=== PATIENT | female | born 1965 | race Native Hawaiian/Other Pacific Islander ===

== ENCOUNTER 2016-06-24 10:59 | Emergency (ER) | payer OTHER ==
[2016-06-24] MEDS ORDERED: NORCO 7.5/325 PO ONE (12:58)
--- NOTE | 2016-06-24 13:02 | Emergency Department Report ---
ED ENT HPI - General Chief complaint: Dental/Oral Stated complaint: TOOTHACHE Time Seen by Provider: 06/24/16 12:57 Source: patient Mode of arrival: Ambulatory Limitations: No Limitations - History of Present Illness Initial comments: 50 y/o female complain of toothache to left top tooth x 2 days . complaint: tooth pain Onset/Timin -: days(s) Location: tooth # (8) Severity: mild Severity scale (0 -10): 8 Quality: aching Consistency: constant Improves with: none Worsens with: none Context- Dental: history of dental caries Associated Symptoms: gum swelling - Related Data Previous Rx's Medication Instructions Recorded Last Taken Type HYDROcodone/ACETAMINOPHEN [[place] 1 each PO Q6HR PRN #20 tablet 03/30/14 Unknown Rx 5/325 Tablet] Ibuprofen [Motrin] 600 mg PO Q8H PRN #40 tablet 03/30/14 Unknown Rx Ibuprofen [Motrin] 800 mg PO Q8HR PRN #21 tablet 01/13/15 Unknown Rx Ibuprofen [Motrin] 800 mg PO Q8HR PRN #30 tablet 06/24/16 Unknown Rx Penicillin Vk [Veetids TAB] 250 mg PO QID #28 tablet 06/24/16 Unknown Rx Allergies Allergy/AdvReac Type Severity Reaction Status Date / Time No Known Allergies Allergy Verified 03/30/14 20:03 ED Dental HPI - General Chief complaint: Dental/Oral Stated complaint: TOOTHACHE Time Seen by Provider: 06/24/16 12:57 Source: patient Mode of arrival: Ambulatory Limitations: No Limitations - Related Data Previous Rx's Medication Instructions Recorded Last Taken Type HYDROcodone/ACETAMINOPHEN [[place] 1 each PO Q6HR PRN #20 tablet 03/30/14 Unknown Rx 5/325 Tablet] Ibuprofen [Motrin] 600 mg PO Q8H PRN #40 tablet 03/30/14 Unknown Rx Ibuprofen [Motrin] 800 mg PO Q8HR PRN #21 tablet 01/13/15 Unknown Rx Ibuprofen [Motrin] 800 mg PO Q8HR PRN #30 tablet 06/24/16 Unknown Rx Penicillin Vk [Veetids TAB] 250 mg PO QID #28 tablet 06/24/16 Unknown Rx Allergies Allergy/AdvReac Type Severity Reaction Status Date / Time No Known Allergies Allergy Verified 03/30/14 20:03 ED Review of Systems ROS: Stated complaint: TOOTHACHE Other details as noted in HPI Constitutional: denies: chills, fever Eyes: denies: eye pain, eye discharge, vision change ENT: dental pain. denies: ear pain, throat pain Respiratory: denies: cough, shortness of breath, wheezing Cardiovascular: denies: chest pain, palpitations Endocrine: no symptoms reported Gastrointestinal: denies: abdominal pain, nausea, diarrhea Genitourinary: denies: urgency, dysuria, discharge Musculoskeletal: denies: back pain, joint swelling, arthralgia Skin: denies: rash, lesions Neurological: denies: headache, weakness, paresthesias Psychiatric: denies: anxiety, depression Hematological/Lymphatic: denies: easy bleeding, easy bruising ED Past Medical Hx - Past Medical History Additional medical history: hypothyroid - Surgical History Past Surgical History?: No - Social History Smoking Status: Current Every Day Smoker Substance Use Type: None - Medications Home Medications: Home Medications Medication Instructions Recorded Confirmed Last Taken Type HYDROcodone/ACETAMINOPHEN [[place] 1 each PO Q6HR PRN #20 tablet 03/30/14 Unknown Rx 5/325 Tablet] Ibuprofen [Motrin] 600 mg PO Q8H PRN #40 tablet 03/30/14 Unknown Rx Ibuprofen [Motrin] 800 mg PO Q8HR PRN #21 tablet 01/13/15 Unknown Rx Ibuprofen [Motrin] 800 mg PO Q8HR PRN #30 tablet 06/24/16 Unknown Rx Penicillin Vk [Veetids TAB] 250 mg PO QID #28 tablet 06/24/16 Unknown Rx ED Physical Exam - General Limitations: No Limitations General appearance: alert, in no apparent distress - Head Head exam: Present: atraumatic, normocephalic - Eye Eye exam: Present: normal appearance, PERRL Pupils: Present: normal accommodation - ENT ENT exam: Present: mucous membranes moist - Expanded ENT Exam Expanded Ear exam: Present: normal external inspection Teeth exam: Present: dental caries, dental tenderness # - Neck Neck exam: Present: normal inspection - Respiratory Respiratory exam: Present: normal lung sounds bilaterally. Absent: respiratory distress, wheezes, rales - Cardiovascular Cardiovascular Exam: Present: regular rate, normal rhythm. Absent: systolic murmur, diastolic murmur, rubs, gallop - GI/Abdominal GI/Abdominal exam: Present: soft, normal bowel sounds - Extremities Exam Extremities exam: Present: normal inspection - Back Exam Back exam: Present: normal inspection - Neurological Exam Neurological exam: Present: alert, oriented X3 - Psychiatric Psychiatric exam: Present: normal affect, normal mood - Skin Skin exam: Present: warm, dry, intact, normal color. Absent: rash ED Course Vital Signs 06/24/16 11:06 Temperature 98.7 F Pulse Rate 86 Blood Pressure 122/84 O2 Sat by Pulse 100 Oximetry ED Medical Decision Making - Medical Decision Making mild tooth abscess over tooth number 8 Critical care attestation.: If time is entered above; I have spent that time in minutes in the direct care of this critically ill patient, excluding procedure time. ED Disposition Clinical Impression: Tooth abscess Disposition: DISCHARGED TO HOME OR SELFCARE Is pt being admited?: No Does the pt Need Aspirin: No Condition: Stable Instructions: Dental Abscess (ED) Additional Instructions: follow up with dentist Prescriptions: Ibuprofen [Motrin] 800 mg PO Q8HR PRN #30 tablet PRN Reason: Pain Penicillin Vk [Veetids TAB] 250 mg PO QID #28 tablet Referrals: NEFTALI DEUTSCH MD [Primary Care Provider] - 3-5 Days [facility] [Outside] - 3-5 Days Forms: Work/School Release Form(ED) Time of Disposition: 13:10
[2016-06-24 13:35] VITALS: BP 120/84
== END 2016-06-24 13:33 | disposition home or self-care (01) ==
LOC: ED 10:59
DX: K04.7 Periapical abscess without sinus (principal); E03.9 Hypothyroidism, unspecified; F17.200 Nicotine dependence, unspecified, uncomplicated
CPT/HCPCS: 99282

== ENCOUNTER 2016-07-02 15:13 | Outpatient (CLI) | payer OTHER | END 2016-07-02 15:14 | disposition home or self-care (01) | LOC: LABHHL 15:13 → LAB 15:13 | PROVIDERS: ATTEND Internal Medicine Gastroenterology | DX: D12.5 Benign neoplasm of sigmoid colon (principal) | CPT/HCPCS: 88305 ==

== ENCOUNTER 2017-02-05 11:58 | Emergency (ER) | payer OTHER ==
[2017-02-05 12:30] VITALS: BP 109/57
[2017-02-05 13:03] LABS: Urine Drugs of Abuse Note Disclamer
[2017-02-05 13:15] LABS: Bilirubin,Urine NEG (Negative); Blood,Urine NEG (Negative); Ketones,Urine NEG (Negative); Leukocyte Esterase,Urine NEG (Negative); Mucus,Urine FEW /HPF; Nitrite,Urine NEG (Negative); Protein,Urine <15 mg/dL mg/dL (Negative); Urobilinogen,Urine < 2.0 mg/dL (<2.0); WBC,Urine < 1.0 /HPF (0.0-6.0)
== END 2017-02-05 20:55 | disposition left against medical advice (07) ==
LOC: ED 11:58
DX: R45.851 Suicidal ideations (principal); Z53.21 Procedure and treatment not carried out due to patient leaving prior to being seen by health care provider
CPT/HCPCS: 80307; 81001

== ENCOUNTER 2017-04-04 07:38 | Outpatient (CLI) | payer OTHER ==
--- NOTE | 2017-04-04 08:32 | Ultrasound Report ---
ULTRASOUND EXTREMITY NONVASCULAR LEFT History: Mass on left thigh, leg mass. Findings: Targeted grayscale ultrasound with color Doppler interrogation was performed in the upper, posterior left leg. The images demonstrate nonspecific subcutaneous edema. There is no evidence for mass or fluid collection. There are a few small varicose veins identified in this area. The contralateral leg was also performed in this area for comparison. Impression: Nonspecific subcutaneous edema in the left posterior thigh. No discrete mass or fluid collection. A few varicose veins are identified in this area.
== END 2017-04-04 07:39 | disposition home or self-care (01) ==
LOC: US 07:38
PROVIDERS: ATTEND Surgery
DX: I83.92 Asymptomatic varicose veins of left lower extremity (principal); R22.9 Localized swelling, mass and lump, unspecified

== ENCOUNTER 2020-05-31 17:09 | Emergency (ER) | payer OTHER ==
--- NOTE | 2020-05-31 18:07 | Event Note ---
ED Screening Note ED Screening Note: procedure in april 2020 removal of possible lipoma?? now having left left pain and swelling calf pain her doctor sent to ED for concern for possible DVT also has an outpatient order for XR This initial assessment/diagnostic orders/clinical plan/treatment(s) is/are subject to change based on patients health status, clinical progression and re- assessment by fellow clinical providers in the ED. Further treatment and workup at subsequent clinical providers discretion. Patient/guardian urged not to elope from the ED as their condition may be serious if not clinically assessed and managed. Initial orders include: labs, US, XR
[2020-05-31 19:33] LABS: Alanine Aminotransferase 63 units/L (7-56); Albumin 4.2 g/dL (3.9-5); Basophils # (Auto) 0.1 K/mm3 (0.0-0.1); Basophils % (Auto) 0.5 % (0.0-1.8); Blood Urea Nitrogen 10 mg/dL (7-17); Calcium 9.3 mg/dL (8.4-10.2); Eosinophils # (Auto) 0.4 K/mm3 (0.0-0.4); Eosinophils % (Auto) 3.6 % (0.0-4.3); Hematocrit 40.6 % (30.3-42.9); Hemoglobin 13.4 gm/dl (10.1-14.3); Hemolysis Index 3; Lymphocytes % (Auto) 32.9 % (13.4-35.0); Mean Corpuscular HGB Conc 33 % (30-34); Mean Corpuscular Volume 95 fl (79-97); Monocytes # (Auto) 0.8 K/mm3 (0.0-0.8); Monocytes % (Auto) 6.6 % (0.0-7.3); Platelet Count 374 K/mm3 (140-440); Red Blood Count 4.26 M/mm3 (3.65-5.03); Red Cell Distribution Width 13.2 % (13.2-15.2)
[2020-05-31 19:35] LABS: BUN/Creatinine Ratio 25
[2020-05-31 19:47] LABS: INR 0.86 (0.87-1.13)
[2020-05-31 19:48] LABS: Partial Thromboplastin Time 28.5 Sec. (24.2-36.6)
--- NOTE | 2020-05-31 19:57 | XRay Report ---
LEFT HIP 2 VIEWS INDICATION / CLINICAL INFORMATION: recent procedure left lateral thigh COMPARISON: None available. FINDINGS: BONES / JOINT(S): No acute fracture or subluxation. No significant arthritis. SOFT TISSUES: No significant abnormality. ADDITIONAL FINDINGS: None. Signer Name: Lan Theodore MD Signed: 05/31/2020 7:53 PM Workstation Name: [id number]
[2020-05-31] MEDS ORDERED: APIXABAN 5 MG TAB PO ONE (20:27)
--- NOTE | 2020-05-31 20:34 | Emergency Department Report ---
ED Extremity Problem HPI - General Chief complaint: Extremity Problem,Nontraumatic Stated complaint: LT LEG PAIN/SWOLLEN Time Seen by Provider: 05/31/20 18:05 Source: patient Mode of arrival: Ambulatory Limitations: No Limitations - History of Present Illness Initial comments: Patient is a 54-year-old female who presents emergency room with complaints of left leg pain and swelling that began 05/26/2020. Patient states that on 04/15/2020 she had a procedure to the left leg to remove a lipoma. She states that she went back to work on 05/23/2020. She states that beginning last week she began to notice left leg pain, swelling, calf pain. She states that she feels like she has a lump in her calf. She denies any fall or injury. She denies any erythema, increased warmth, drainage, numbness, weakness, chest pain, shortness of breath. She denies any other past medical history. No allergies to medications. She denies any history of intercranial hemorrhage, CVA, GI bleed, cancer. - Related Data Previous Rx's Medication Instructions Recorded Last Taken Type HYDROcodone/ACETAMINOPHEN [[place] 1 each PO Q6HR PRN #20 tablet 03/30/14 Unknown Rx 5/325 Tablet] Ibuprofen [Motrin] 600 mg PO Q8H PRN #40 tablet 03/30/14 Unknown Rx Ibuprofen [Motrin] 800 mg PO Q8HR PRN #21 tablet 01/13/15 Unknown Rx Ibuprofen [Motrin] 800 mg PO Q8HR PRN #30 tablet 06/24/16 Unknown Rx Penicillin Vk [Veetids TAB] 250 mg PO QID #28 tablet 06/24/16 Unknown Rx Apixaban [Eliquis] 10 mg PO BID 2 Days #4 tablet 05/31/20 Unknown Rx methOCARBAMOL [Robaxin TAB] 500 mg PO BID PRN #14 tab 05/31/20 Unknown Rx traMADoL [Ultram 50 MG tab] 50 mg PO Q6HR PRN #10 tablet 05/31/20 Unknown Rx Allergies Allergy/AdvReac Type Severity Reaction Status Date / Time No Known Allergies Allergy Verified 04/22/18 13:33 ED Review of Systems ROS: Stated complaint: LT LEG PAIN/SWOLLEN Other details as noted in HPI Comment: All other systems reviewed and negative ED Past Medical Hx - Past Medical History Hx Psychiatric Treatment: Yes Additional medical history: hypothyroid - Social History Smoking Status: Current Some Day Smoker Substance Use Type: None - Medications Home Medications: Home Medications Medication Instructions Recorded Confirmed Last Taken Type HYDROcodone/ACETAMINOPHEN [[place] 1 each PO Q6HR PRN #20 tablet 03/30/14 Unknown Rx 5/325 Tablet] Ibuprofen [Motrin] 600 mg PO Q8H PRN #40 tablet 03/30/14 Unknown Rx Ibuprofen [Motrin] 800 mg PO Q8HR PRN #21 tablet 01/13/15 Unknown Rx Ibuprofen [Motrin] 800 mg PO Q8HR PRN #30 tablet 06/24/16 Unknown Rx Penicillin Vk [Veetids TAB] 250 mg PO QID #28 tablet 06/24/16 Unknown Rx Apixaban [Eliquis] 10 mg PO BID 2 Days #4 tablet 05/31/20 Unknown Rx methOCARBAMOL [Robaxin TAB] 500 mg PO BID PRN #14 tab 05/31/20 Unknown Rx traMADoL [Ultram 50 MG tab] 50 mg PO Q6HR PRN #10 tablet 05/31/20 Unknown Rx ED Physical Exam - General Limitations: No Limitations General appearance: alert, in no apparent distress - Head Head exam: Present: atraumatic, normocephalic - Eye Eye exam: Present: normal appearance - ENT ENT exam: Present: mucous membranes moist - Respiratory Respiratory exam: Present: normal lung sounds bilaterally. Absent: respiratory distress, wheezes, rales, rhonchi, stridor, chest wall tenderness, accessory muscle use, decreased breath sounds, prolonged expiratory - Cardiovascular Cardiovascular Exam: Present: regular rate, normal rhythm, normal heart sounds. Absent: systolic murmur, diastolic murmur, rubs, gallop - Neurological Exam Neurological exam: Present: alert, oriented X3 - Psychiatric Psychiatric exam: Present: normal affect, normal mood - Skin Skin exam: Present: warm, dry, other (there is a healed incision to the left posterior thigh, no erythema, no increased warmth, no fluctuance or induration, no drainage, there is mild non pitting edema to the LLE, calf ttp, no skin changes, neurovascularly intact) ED Course Vital Signs 05/31/20 17:28 Temperature 98.4 F Pulse Rate 90 Respiratory 20 Rate Blood Pressure 138/58 [Right] O2 Sat by Pulse 96 Oximetry ED Medical Decision Making - Lab Data Result diagrams: 05/31/20 19:00 05/31/20 19:00 Lab Results 05/31/20 05/31/20 05/31/20 Range/Units 19:00 19:00 19:00 WBC 12.0 H (4.5-11.0) K/mm3 RBC 4.26 (3.65-5.03) M/mm3 Hgb 13.4 (10.1-14.3) gm/dl Hct 40.6 (30.3-42.9) % MCV 95 (79-97) fl MCH 32 (28-32) pg MCHC 33 (30-34) % RDW 13.2 (13.2-15.2) % Plt Count 374 (140-440) K/mm3 Lymph % (Auto) 32.9 (13.4-35.0) % [place] % (Auto) 6.6 (0.0-7.3) % Eos % (Auto) 3.6 (0.0-4.3) % Baso % (Auto) 0.5 (0.0-1.8) % Lymph # (Auto) 4.0 (1.2-5.4) K/mm3 [place] # (Auto) 0.8 (0.0-0.8) K/mm3 Eos # (Auto) 0.4 (0.0-0.4) K/mm3 Baso # (Auto) 0.1 (0.0-0.1) K/mm3 Seg Neutrophils % 56.4 (40.0-70.0) % Seg Neutrophils # 6.8 (1.8-7.7) K/mm3 PT 11.6 L (12.2-14.9) Sec. INR 0.86 L (0.87-1.13) APTT 28.5 (24.2-36.6) Sec. Sodium 141 (137-145) mmol/L Potassium 4.1 (3.6-5.0) mmol/L Chloride 106.6 (98-107) mmol/L Carbon Dioxide 26 (22-30) mmol/L Anion Gap 13 mmol/L BUN 10 (7-17) mg/dL Creatinine 0.4 L (0.6-1.2) mg/dL Estimated GFR > 60 ml/min BUN/Creatinine Ratio 25 % Glucose 105 H (65-100) mg/dL Lactic Acid (0.7-2.0) mmol/L Calcium 9.3 (8.4-10.2) mg/dL Total Bilirubin 0.20 (0.1-1.2) mg/dL AST 46 H (5-40) units/L ALT 63 H (7-56) units/L Alkaline Phosphatase 132 H (35-129) units/L Total Protein 7.1 (6.3-8.2) g/dL Albumin 4.2 (3.9-5) g/dL Albumin/Globulin Ratio 1.4 % 05/31/20 Range/Units 19:00 WBC (4.5-11.0) K/mm3 RBC (3.65-5.03) M/mm3 Hgb (10.1-14.3) gm/dl Hct (30.3-42.9) % MCV (79-97) fl MCH (28-32) pg MCHC (30-34) % RDW (13.2-15.2) % Plt Count (140-440) K/mm3 Lymph % (Auto) (13.4-35.0) % [place] % (Auto) (0.0-7.3) % Eos % (Auto) (0.0-4.3) % Baso % (Auto) (0.0-1.8) % Lymph # (Auto) (1.2-5.4) K/mm3 [place] # (Auto) (0.0-0.8) K/mm3 Eos # (Auto) (0.0-0.4) K/mm3 Baso # (Auto) (0.0-0.1) K/mm3 Seg Neutrophils % (40.0-70.0) % Seg Neutrophils # (1.8-7.7) K/mm3 PT (12.2-14.9) Sec. INR (0.87-1.13) APTT (24.2-36.6) Sec. Sodium (137-145) mmol/L Potassium (3.6-5.0) mmol/L Chloride (98-107) mmol/L Carbon Dioxide (22-30) mmol/L Anion Gap mmol/L BUN (7-17) mg/dL Creatinine (0.6-1.2) mg/dL Estimated GFR ml/min BUN/Creatinine Ratio % Glucose (65-100) mg/dL Lactic Acid 1.20 (0.7-2.0) mmol/L Calcium (8.4-10.2) mg/dL Total Bilirubin (0.1-1.2) mg/dL AST (5-40) units/L ALT (7-56) units/L Alkaline Phosphatase (35-129) units/L Total Protein (6.3-8.2) g/dL Albumin (3.9-5) g/dL Albumin/Globulin Ratio % - Radiology Data Radiology results: report reviewed Ordering Physician: CELINA BERNAL Date of Service: 05/31/20 Procedure(s): XR hip 2-3V LT Accession Number(s): [id number] cc: CELINA BERNAL Fluoro Time In Minutes: LEFT HIP 2 VIEWS INDICATION / CLINICAL INFORMATION: recent procedure left lateral thigh COMPARISON: None available. FINDINGS: BONES / JOINT(S): No acute fracture or subluxation. No significant arthritis. SOFT TISSUES: No significant abnormality. ADDITIONAL FINDINGS: None. Signer Name: Lan Theodore MD Signed: 05/31/2020 7:53 PM Workstation Name: [id number] Transcribed By: ES Dictated By: Lan Theodore MD Electronically Authenticated By: Lan Theodore MD Signed Date/Time: 05/31/201952 DD/ 51 TD/TT: - Medical Decision Making Patient is a 54-year-old female who presents emergency room with complaints of left leg pain and swelling that began 05/26/2020. Patient states that on 04/15/2020 she had a procedure to the left leg to remove a lipoma. She states that she went back to work on 05/23/2020. She states that beginning last week she began to notice left leg pain, swelling, calf pain. She states that she feels like she has a lump in her calf. She denies any fall or injury. She denies any erythema, increased warmth, drainage, numbness, weakness, chest pain, shortness of breath. She denies any other past medical history. No allergies to medications. She denies any history of intercranial hemorrhage, CVA, GI ble ed, cancer. vss. on exam:there is a healed incision to the left posterior thigh, no erythema, no increased warmth, no fluctuance or induration, no drainage, there is mild non pitting edema to the LLE, calf ttp, no skin changes, neurovascularly intact. Labs are stable. X-ray left hip BONES / JOINT(S): No acute fracture or subluxation. No significant arthritis. SOFT TISSUES: No significant abnormality. ADDITIONAL FINDINGS: None. Due to unilateral leg swelling, there is concern for DVT. She has no tachycardia, no hypoxia, no chest pain, no shortness of breath, do not suspect PE at this time. Patient needs to have a ultrasound of the left lower extremity. There is no care administrative tech able to perform this study at night. Patient given p.o. Eliquis as she does not have any contraindications while in the emergency department and observed for 2 hours without any complications. Patient will be given a outpatient order form for ultrasound and advised to return tomorrow 06/01/2020 at 9 AM. Discussed very strict return precautions with patient. Discussed the importance of returning tomorrow to have the study performed. Patient given prescription for short course of Eliquis until she is able to have her ultrasound performed. Also given prescription for Robaxin and tramadol for pain. Discussed case with Dr. Weston, ER attending who agrees with plan. Advised pt Please take medication as prescribed. Do not drive or operate machinery while taking pain medication or muscle relaxer. Please return tomorrow 06/01/2020 at 9 AM to have a ultrasound performed of your leg. Please follow-up with a vascular doctor. Please follow-up with your primary care doctor. Return to emergency room immediately for any new or worsening symptoms or any signs of any bleeding. Critical care attestation.: If time is entered above; I have spent that time in minutes in the direct care of this critically ill patient, excluding procedure time. ED Disposition Clinical Impression: Pain and swelling of left lower leg Disposition: DC-01 TO HOME OR SELFCARE Is pt being admited?: No Does the pt Need Aspirin: No Condition: Stable Additional Instructions: Please take medication as prescribed. Do not drive or operate machinery while taking pain medication or muscle relaxer. Please return tomorrow 06/01/2020 at 9 AM to have a ultrasound performed of your leg. Please follow-up with a vascular doctor. Please follow-up with your primary care doctor. Return to emergency room immediately for any new or worsening symptoms or any signs of any bleeding. Kieler los medicamentos segn lo prescrito. No conduzca ni maneje maquinaria mientras est tomando analgsicos o relajantes musculares. Regrese maana 06/01/2020 a las 9 a. M. Para que le realicen dwayne ecografa de la pierna. Pio un seguimiento con un mdico vascular. Pio un seguimiento con kirk mdico de atencin primaria. Regrese a la sheeba de emergencias de inmediato ante cualquier sntoma nuevo o que empeore o cualquier signo de sangrado. Prescriptions: Apixaban [Eliquis] 10 mg PO BID 2 Days #4 tablet methOCARBAMOL [Robaxin TAB] 500 mg PO BID PRN #14 tab PRN Reason: pain traMADoL [Ultram 50 MG tab] 50 mg PO Q6HR PRN #10 tablet PRN Reason: Pain , Severe (7-10) Referrals: [facility] [Provider Group] - 2-3 Days Print Language: WOLOF
[2020-05-31 22:38] VITALS: BP 141/67
== END 2020-05-31 23:09 | disposition home or self-care (01) ==
LOC: ED 17:09
DX: M79.662 Pain in left lower leg (principal); M79.89 Other specified soft tissue disorders; E03.9 Hypothyroidism, unspecified; F17.200 Nicotine dependence, unspecified, uncomplicated; Z79.899 Other long term (current) drug therapy
CPT/HCPCS: 36415; 80053; 82140; 85025; 85610; 85730

== ENCOUNTER 2020-06-01 09:16 | Outpatient (CLI) | payer OTHER ==
--- NOTE | 2020-06-01 14:32 | Vascular Lab Report ---
DUPLEX DOPPLER LOWER EXTREMITY VEINS, LEFT INDICATION: LT.LEG PAIN/SWELLING. TECHNIQUE: Duplex doppler imaging was performed through the veins of the left lower extremity using venous compr ession and other maneuvers. COMPARISON: No relevant prior imaging study available. FINDINGS: Left Common femoral vein: Negative. Left Superficial femoral vein: Negative. Left Popliteal vein: Negative. Left Calf veins: Negative. Additional findings: None.. IMPRESSION: 1. No sonographic evidence for DVT in the left lower extremity. Signer Name: Romain Bryson MD Signed: 06/01/2020 2:27 PM Workstation Name: [id number]
== END 2020-06-01 09:17 | disposition home or self-care (01) ==
LOC: US 09:16
DX: I87.2 Venous insufficiency (chronic) (peripheral) (principal)

== ENCOUNTER 2020-08-29 16:23 | Outpatient (CLI) | payer OTHER ==
--- NOTE | 2020-08-29 17:27 | XRay Report ---
Lumbar spine 6 views INDICATION: Left low back pain IMPRESSION: Multilevel discogenic and facet arthropathy causing mild bilateral neural foraminal steno sis. Signer Name: Grzegorz Grayson MD Signed: 08/29/2020 5:23 PM Workstation Name: [id number]
--- NOTE | 2020-08-29 17:28 | XRay Report ---
Pelvis 2 views INDICATION: Pain FINDINGS: Comparison is made of May 2020. Bilateral femoral heads well-seated in the acetabulum. No acute fracture dislocation. Sacrum and sacroiliac joints appear normal. Signer Name: Sushil Perez MD Signed: 08/29/2020 5:24 PM Workstation Name: [id number]
== END 2020-08-29 16:24 | disposition home or self-care (01) ==
LOC: LAB 16:23
PROVIDERS: ATTEND Psychiatry & Neurology Neurology
DX: M48.07 Spinal stenosis, lumbosacral region (principal); M51.36 Other intervertebral disc degeneration, lumbar region; M47.817 Spondylosis without myelopathy or radiculopathy, lumbosacral region; R10.2 Pelvic and perineal pain
CPT/HCPCS: 72110; 72170

== ENCOUNTER 2021-01-14 08:51 | Emergency (ER) | payer OTHER ==
[2021-01-14 09:39] VITALS: BP 148/65
--- NOTE | 2021-01-14 11:33 | Emergency Department Report ---
ED General Adult HPI - General Chief complaint: Extremity Injury, Lower Stated complaint: L LEG PAIN Time Seen by Provider: 01/14/21 11:27 Source: patient Mode of arrival: Ambulatory Limitations: No Limitations - History of Present Illness Initial comments: Patient is a 55-year-old female presents emergency room complaints of left leg pain that began 5 days ago. She states the pain begins in her left gluteal region and goes down her left lower extremity. She states that she also gets a tingling sensation sometimes in the left leg. She denies any complete numbness. Patient states that she is also has noticed some left thigh swelling and pain. She states that she noticed a few veins pop up on her leg. She denies any fall, injury, trauma. She denies any weakness and is ambulatory. She denies any skin changes. She denies any past medical history. No allergies to medications. - Related Data Previous Rx's Medication Instructions Recorded Last Taken Type HYDROcodone/ACETAMINOPHEN [[place] 1 each PO Q6HR PRN #20 tablet 03/30/14 Unknown Rx 5/325 Tablet] Ibuprofen [Motrin] 600 mg PO Q8H PRN #40 tablet 03/30/14 Unknown Rx Ibuprofen [Motrin] 800 mg PO Q8HR PRN #21 tablet 01/13/15 Unknown Rx Ibuprofen [Motrin] 800 mg PO Q8HR PRN #30 tablet 06/24/16 Unknown Rx Penicillin Vk [Veetids TAB] 250 mg PO QID #28 tablet 06/24/16 Unknown Rx Apixaban [Eliquis] 10 mg PO BID 2 Days #4 tablet 05/31/20 Unknown Rx methOCARBAMOL [Robaxin TAB] 500 mg PO BID PRN #14 tab 05/31/20 Unknown Rx traMADoL [Ultram 50 MG tab] 50 mg PO Q6HR PRN #10 tablet 05/31/20 Unknown Rx Menthol/Camphor [[place] 1 applicatio TP BID #18 oint...g. 01/14/21 Unknown Rx Ointment] Naproxen 375 mg PO BID PRN #20 tablet 01/14/21 Unknown Rx methOCARBAMOL [Robaxin TAB] 500 mg PO BID PRN #20 tab 01/14/21 Unknown Rx traMADoL [Ultram 50 MG tab] 50 mg PO Q6HR PRN #12 tablet 01/14/21 Unknown Rx Allergies Allergy/AdvReac Type Severity Reaction Status Date / Time No Known Allergies Allergy Verified 01/14/21 09:39 ED Review of Systems ROS: Stated complaint: L LEG PAIN Other details as noted in HPI Comment: All other systems reviewed and negative ED Past Medical Hx - Past Medical History Hx Psychiatric Treatment: Yes Additional medical history: hypothyroid - Social History Smoking Status: Current Some Day Smoker Substance Use Type: None - Medications Home Medications: Home Medications Medication Instructions Recorded Confirmed Last Taken Type HYDROcodone/ACETAMINOPHEN [[place] 1 each PO Q6HR PRN #20 tablet 03/30/14 Unknown Rx 5/325 Tablet] Ibuprofen [Motrin] 600 mg PO Q8H PRN #40 tablet 03/30/14 Unknown Rx Ibuprofen [Motrin] 800 mg PO Q8HR PRN #21 tablet 01/13/15 Unknown Rx Ibuprofen [Motrin] 800 mg PO Q8HR PRN #30 tablet 06/24/16 Unknown Rx Penicillin Vk [Veetids TAB] 250 mg PO QID #28 tablet 06/24/16 Unknown Rx Apixaban [Eliquis] 10 mg PO BID 2 Days #4 tablet 05/31/20 Unknown Rx methOCARBAMOL [Robaxin TAB] 500 mg PO BID PRN #14 tab 05/31/20 Unknown Rx traMADoL [Ultram 50 MG tab] 50 mg PO Q6HR PRN #10 tablet 05/31/20 Unknown Rx Menthol/Camphor [[place] 1 applicatio TP BID #18 oint...g. 01/14/21 Unknown Rx Ointment] Naproxen 375 mg PO BID PRN #20 tablet 01/14/21 Unknown Rx methOCARBAMOL [Robaxin TAB] 500 mg PO BID PRN #20 tab 01/14/21 Unknown Rx traMADoL [Ultram 50 MG tab] 50 mg PO Q6HR PRN #12 tablet 01/14/21 Unknown Rx ED Physical Exam - General Limitations: No Limitations General appearance: alert, in no apparent distress - Head Head exam: Present: atraumatic, normocephalic - Eye Eye exam: Present: normal appearance - ENT ENT exam: Present: mucous membranes moist - Respiratory Respiratory exam: Present: normal lung sounds bilaterally. Absent: respiratory distress, wheezes, rales, rhonchi, stridor, chest wall tenderness, accessory muscle use, decreased breath sounds, prolonged expiratory - Cardiovascular Cardiovascular Exam: Present: regular rate, normal rhythm, normal heart sounds. Absent: systolic murmur, diastolic murmur, rubs, gallop - Extremities Exam Extremities exam: Present: other (mild edema present to the left thigh, no skin changes, small varicose veins to the left calf, no calf ttp, neurovascularly intact, FROM, no bony ttp) - Back Exam Back exam: Present: normal inspection, full ROM, paraspinal tenderness (left lumbar paraspinal muscular ttp, no midline C-spine, T-spine or L-spine ttp, no step offs, no deformities, pain with SLR of the left leg, no pain with SLR right leg). Absent: vertebral tenderness - Neurological Exam Neurological exam: Present: alert, oriented X3 - Psychiatric Psychiatric exam: Present: normal affect, normal mood - Skin Skin exam: Present: warm, dry, intact ED Course Vital Signs 01/14/21 09:37 Temperature 98.9 F Pulse Rate 83 Respiratory 18 Rate Blood Pressure 148/65 [Left] O2 Sat by Pulse 98 Oximetry ED Medical Decision Making - Radiology Data Radiology results: report reviewed Ordering Physician: CELINA BERNAL Date of Service: 01/14/21 Procedure(s): VL venous duplex LE LT Accession Number(s): [id number] cc: CELINA BERNAL DUPLEX DOPPLER LOWER EXTREMITY VEINS, LEFT INDICATION: left thigh pain/swelling, varicose veins. TECHNIQUE: Duplex doppler imaging was performed through the veins of the left lower extremity using venous compression and other maneuvers. COMPARISON: None available. FINDINGS: Common femoral vein: Negative. Superficial femoral vein: Negative. Popliteal vein: Negative. Calf veins: Negative. Additional findings: None. IMPRESSION: 1. No sonographic evidence for DVT in the left lower extremity. Signer Name: Mari Garcia MD Signed: 01/14/2021 1:45 PM Workstation Name: [id number] Transcribed By: JR Dictated By: Mari Garcia MD Electronically Authenticated By: Mari Garcia MD Signed Date/Time: 01/14/21 1345 DD/ 1344 TD/TT: - Medical Decision Making Patient is a 55-year-old female presents emergency room complaints of left leg pain that began 5 days ago. She states the pain begins in her left gluteal region and goes down her left lower extremity. She states that she also gets a tingling sensation sometimes in the left leg. She denies any complete numbness. Patient states that she is also has noticed some left thigh swelling and pain. She states that she noticed a few veins pop up on her leg. She denies any fall, injury, trauma. She denies any weakness and is ambulatory. She denies any skin changes. She denies any past medical history. No allergies to medications. Vitals are stable. On exam:left lumbar paraspinal muscular ttp, no midline C-spine, T-spine or L-spine ttp, no step offs, no deformities, pain with SLR of the left leg, no pain with SLR right leg, mild edema present to the left thigh, no skin changes, small varicose veins to the left calf, no calf ttp, neurovascularly intact, FROM, no bony ttp. Symptoms and examination appear likely consistent with sciatica versus lumbar radiculopathy. Given that patient is having some thigh pain with some mild edema and small varicose veins, will order ultrasound to rule out DVT. Ultrasound of the lower extremity: 1. No sonographic evidence for DVT in the left lower extremity. Patient given prescription for medications. Advised patient Please take medication as prescribed. Do not drive or operate machinery while taking muscle relaxer or severe pain medication. May use ice pack, heating pad, rest, and salt bath. Do not use heat or ice while using [place] balm. Follow-up with a primary care doctor. Follow-up with a certified technician specialist. Return to emergency room for any new or worsening symptoms. Critical care attestation.: If time is entered above; I have spent that time in minutes in the direct care of this critically ill patient, excluding procedure time. ED Disposition Clinical Impression: Left leg pain Low back pain Qualifiers: Chronicity: acute Back pain laterality: left Sciatica presence: with sciatica Sciatica laterality: sciatica of left side Qualified Code(s): M54.42 - Lumbago with sciatica, left side Disposition: 01 HOME / SELF CARE / HOMELESS Is pt being admited?: No Does the pt Need Aspirin: No Condition: Stable Instructions: Sciatica Additional Instructions: Please take medication as prescribed. Do not drive or operate machinery while taking muscle relaxer or severe pain medication. May use ice pack, heating pad, rest, and salt bath. Do not use heat or ice while using [place] balm. Follow-up with a primary care doctor. Follow-up with a certified technician specialist. Return to emergency room for any new or worsening symptoms. Prescriptions: Naproxen 375 mg PO BID PRN #20 tablet PRN Reason: pain methOCARBAMOL [Robaxin TAB] 500 mg PO BID PRN #20 tab PRN Reason: muscle spasm/pain Menthol/Camphor [[place] Ointment] 1 applicatio TP BID #18 oint...g. traMADoL [Ultram 50 MG tab] 50 mg PO Q6HR PRN #12 tablet PRN Reason: Pain , Severe (7-10) Referrals: PRIMARY CARE, [Primary Care Provider] - 3-5 Days MAY MOORE II, MD [Staff Physician] - 3-5 Days Time of Disposition: 13:55 Print Language: WOLOF
--- NOTE | 2021-01-14 13:49 | Vascular Lab Report ---
DUPLEX DOPPLER LOWER EXTREMITY VEINS, LEFT INDICATION: left thigh pain/swelling, varicose veins. TECHNIQUE: Duplex doppler imaging was performed through the veins of the left lower extremity using venous compr ession and other maneuvers. COMPARISON: None available. FINDINGS: Common femoral vein: Negative. Superficial femoral vein: Negative. Popliteal vein: Negative. Calf veins: Negative. Additional findings: None. IMPRESSION: 1. No sonographic evidence for DVT in the left lower extremity. Signer Name: Mari Garcia MD Signed: 01/14/2021 1:45 PM Workstation Name: [id number]
== END 2021-01-14 14:15 | disposition home or self-care (01) ==
LOC: ED 08:51
DX: M79.605 Pain in left leg (principal); M54.5 Low back pain; F17.200 Nicotine dependence, unspecified, uncomplicated; Z79.899 Other long term (current) drug therapy
CPT/HCPCS: 99283